=== PATIENT | female | born 2000 | race Caucasian/White ===

== ENCOUNTER 2024-08-04 07:48 | Outpatient (CLI) | payer BC | END 2024-08-04 07:49 | disposition home or self-care (01) | LOC: ULT 07:48 | PROVIDERS: ATTEND Internal Medicine Gastroenterology | DX: K21.9 Gastro-esophageal reflux disease without esophagitis (principal); K92.1 Melena; R10.9 Unspecified abdominal pain | CPT/HCPCS: 76700 ==